=== PATIENT | male | born 2005 | race Caucasian/White ===

== ENCOUNTER 2023-07-23 19:15 | Emergency (ER) | payer OTHER, SELFPAY ==
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
[2023-07-23 19:34] VITALS: BP 126/66; PULSE 78; RESP 20; TEMP 36.8; O2SAT 98; BMI 22.8
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
--- OUTSIDE RECORDS SUMMARY | 2023-07-23 20:21 | XMS_ITS | Continuity of Care Document ---
Author Name Unknown Organization [facility] Address [address] [place] [id number]- Care Team Providers Care Data Analytics Developer Name Role Phone Not on Staff, PCP Primary Care Physician Unavail able [place] [facility] [place] Date(s[place] 03/27/22 - 04/29/[address] [address]- Attending Physician: George LANDRUM, Zulma Thomson Admitting Physician: George LANDRUM, Zulma Thomson Referring Physician: George LANDRUM, Zulma Thomson Allergies, Adverse Reactions, Alerts Substance Reaction Severity Status amoxicillin Active Medications Motrin Childrens 100 mg/5 mL oral suspension 25 mL = 500 mg, By Mouth, Every 6 hours, PRN as needed for pain, # 450 mL, 0 Refills, Maintenance, 09/08/17 22:01:45 Start Date: 09/08/17 Status: Ordered Tylenol Extra Strength 500 mg oral tablet 2 tablet = 1,000 mg, By Mouth, 3 times a day, PRN for fever, # 60 tablet, 0 Refills, Maintenance, 03/31/22 10:35:00 EDT, Tablet, [id number], Partial fill upon patient request, 170, cm, 03/31/22 9:24:00 EDT, Height, 63.1, kg, 03/31/22 9:24:00 E... Start Date: 03/31/22 Stop Date: 04/10/22 Status: Ordered Problem List Condition Effective Dates Status Health Status Inform ant Viral illness(Confirmed) Active Care Team Personnel Name: Not on Staff, PCP
--- OUTSIDE RECORDS SUMMARY | 2023-07-23 20:21 | XMS_ITS | Continuity of Care Document ---
Author Name Unknown Organization [facility] Address [address] [place] [id number]- Care Team Providers Care Prepress Operator Name Role Phone Not on Staff, PCP Primary Care Physician Unavail able Encounter [facility] [place] Date(s): 05/25/22 - 05/29/[address] [address]- Encounter Diagnosis Vomiting(Final) - 05/25/22 Phlegmon(Final) - 05/25/22 Discharge Disposition: A-D/C Residential, Long Term, or Halfway Fac Attending Physician: Sailaja Good MD Admitting Physician: Sailaja Good MD Referring Physician: Not on Staff, Referring MD Allergies, Adverse Reactions, Alerts Substance Reaction Severity Status amoxicillin Active Medications Acetaminophen Tablet 975 mg, Tablet, By Mouth, 05/29/22 13:00:00 EDT Start Date: 05/29/22 Stop Date: 05/29/22 Status: Completed ciprofloxacin 500 mg oral tablet 1 tablet = 500 mg, By Mouth, Every 12 hours, for 3 days, # 6 tablet, 0 Refills, Acute 06/01/22 12:09:00 EDT, 05/29/22 12:09:00 EDT, Tablet, Partial fill upon patient request if the prescription is for a schedule II opioid drug., 173, cm, 05/23/22 17:3... Start Date: 05/29/22 Stop Date: 06/01/22 Status: Ordered Colace sodium 100 mg oral capsule 100 mg, 1, capsule, By Mouth, 2 times a day, PRN, # 20 capsule, Refills 0, Tot. Refills 0, Maintenance, for constipation, 05/23/22 13:13:00 EDT, Print Requisition, Partial fill upon patient request if the prescription is for a schedule II opioid drug. Start Date: 05/23/22 Status: Ordered metroNIDAZOLE 500 mg oral tablet 1 tablet = 500 mg, By Mouth, 3 times a day, for 3 days, # 9 tablet, 0 Refills, Acute 06/01/22 12:10:00 EDT, 05/29/22 12:10:00 EDT, Tablet, Partial fill upon patient request if the prescription is fora schedule II opioid drug., 173, cm, 05/23/22 17:39... Start Date: 05/29/22 Stop Date: 06/01/22 Status: Ordered Motrin Childrens 100 mg/5 mL oral suspension 25 mL = 500 mg, By Mouth, Every 6 hours, PRN as needed for pain, # 450 mL, 0 Refills, Maintenance, 09/08/17 22:01:45 Start Date: 09/08/17 Status: Ordered oxyCODONE 5 mg oral tablet 5 mg, 1, tablet, By Mouth, Every 6 hours, PRN, for 2 days, # 8 tablet, Refills 0, Tot. Refills 0, Acute 05/31/22 12:09:00 EDT, Pain , Moderate, 05/29/22 12:09:00 EDT, Print Requisition, Partial fill upon patient request if the prescription is for a sc... Start Date: 05/29/22 Stop Date: 05/31/22 Status: Ordered oxyCODONE 5 mg oral tablet 5 mg, Tablet, By Mouth, Every 6 hours, PRN for Pain , Moderate, Routine, 05/26/22 9:16:00 EDT Start Date: 05/26/22 Stop Date: 06/02/22 Status: Ordered Tylenol Extra Strength 500 mg [...] Health Status Inform ant Viral illness(Confirmed) Active Procedures Procedure Date Related Diagnosis Body Site Status Appendectomy Completed Results Orders for Microbiology Reports Name Date Blood Culture 05/25/22 Blood Culture #2 05/25/22 Microbiology Reports TEST:Blood Culture, Second Order STATUS:Unauthenticated BODY SITE: SOURCE:Blood COLLECTED DATE/TIME:05/25/22 12:47 PM Blood Culture, Second Order SPECIMEN DESCRIPTION : BLOOD LAC SPECIAL REQUESTS : NONE CULTURE : NO GROWTH 4 DAYS REPORT STATUS : PRELIMINARY REPORT TEST:Blood Culture STATUS:Unauthenticated BODY SITE: SOURCE:Blood COLLECTED DATE/TIME:05/25/22 12:35 PM Blood Culture SPECIMEN DESCRIPTION : BLOOD RAC SPECIAL REQUESTS : NONE CULTURE : NO GROWTH 4 DAYS REPORT STATUS : PRELIMINARY REPORT Vital Signs Most recent to oldest [Reference Range]: 1 2 3 Weight 66.3 kg (05/27/22 6:17 AM) Oxygen Saturation [94-100 %] 98 % (05/29/22 7:33 AM) 100 % (05/28/22 11:48 PM) 99 % (05/28/22 4:50 PM) Pulse Rate [55-90 bpm] 78 bpm (05/29/22 7:33 AM) 66 bpm (05/28/22 11:48 PM) 72 bpm (05/28/22 4:50 PM) Blood Pressure [90-138/55-84 mm Hg] 124/61mm Hg (05/29/22 7:33 AM) 128/69mm Hg (05/28/22 11:48 PM) 130/57mm Hg (05/28/22 4:50 PM) Respiratory Rate [16-30 br/min] 18 br/min (05/29/22 4:29 PM) 18 br/min (05/29/22 4:29 PM) 18 br/min (05/29/22 2:29 PM) Temperature [96.8-100.4 DegF] 98.2 DegF (05/29/22 7:33 AM) 97.7 DegF (05/28/22 11:48 PM) 98.2 DegF (05/28/22 4:50 PM) Mode of Delivery (Oxygen) Room air (05/29/22 7:33 AM) Room air (05/28/22 11:48 PM) Room air (05/28/22 4:50 PM) Blood pressure sites Arm, left (05/29/22 7:33 AM) Arm, left (05/28/22 11:48 PM) Arm, left (05/28/22 4:50 PM) Temperature Route Oral (05/29/22 7:33 AM) Oral (05/28/22 11:48 PM) Oral (05/28/22 4:50 PM) Dry Weight 66.3 kg (05/27/22 6:17 AM) Care Team Personnel Name: Not on Staff, PCP
--- OUTSIDE RECORDS SUMMARY | 2023-07-23 20:21 | XMS_ITS | Continuity of Care Document ---
Author Name Unknown Organization [facility] As [facility] Address [address] [place] [address] [address] [place] [address]- Care Team Providers Care Chemical Instrumentation Officer Name Role Phone Not on Staff, PCP Primary Care Physician Unavail able Encounter [facility] [place] Date(s): 06/05/22 - 06/12/[address] [place] [address]- Attending Physician: Merlin Sweeney MD Allergies, Adverse Reactions, Alerts Substance Reaction Severity Status amoxicillin Active Medications Colace sodium 100 mg oral capsule 100 mg, 1, capsule, By Mouth, 2 times a day, PRN, # 20 capsule, Refills 0, Tot. Refills 0, Maintenance, for constipation, 05/23/22 13:13:00 EDT, Print Requisition, Partial fill upon patient request if the prescription is for a schedule II opioid drug. Start Date: 05/23/22 Status: Ordered Motrin Childrens 100 mg/5 mL [...] Date: 04/10/22 Status: Ordered Problem List Condition Confirmation Course Effective Dates Status Health St atus Informant Viral illness Confirmed Active Vital Signs Most recent to oldest [Reference Range]: 1 Height 173 cm (06/05/22 11:29 AM) Weight 63.8 kg (06/05/22 11:29 AM) Pulse Rate [55-90 bpm] 74 bpm (06/05/22 11:29 AM) Body Mass Index [18.5-24.99 kg/m2] 21.32 kg/m2 (06/05/22 11:29 AM) Blood Pressure [90-138/55-84 mm Hg] 142/ 77mm Hg *H* (06/05/22 11:29 AM) Temperature [96.8-100.4 DegF] 98.5 DegF (06/05/22 11:29 AM) Blood pressure sites Arm, left (06/05/22 11:29 AM) Temperature Route Temporal (06/05/22 11:29 AM) Weight Obtained Via Standing scale (06/05/22 11:29 AM) Patient Care team information Personnel Name: Not on Staff, PCP
--- OUTSIDE RECORDS SUMMARY | 2023-07-23 20:21 | XMS_ITS | Continuity of Care Document ---
Author Name Unknown Organization [facility] Address [address] [place] [address]- Care Team Providers Care Remediation Consultant Name Role Phone Not on Staff, PCP Primary Care Physician Unavail able Encounter [facility] [place] Date(s): 05/10/20 - 05/10/[address] [address]- [facility] Encounter Diagnosis URI due to influenza(Final) - 05/10/20 URI (upper respiratory infection)(Final) - 05/10/20 Discharge Disposition: A-D/C Home Attending Physician: Marin Ji MD Admitting Physician: Marin Ji MD Referring Physician: Not on Staff, Referring MD Allergies, Adverse Reactions, Alerts Substance Reaction Severity Status amoxicillin Active Medications cefuroxime 250 mg/5 ml oral powder for reconstitution 10 mL = 500 mg, By Mouth, 2 times a day, # 160 mL, 0 Refills Start Date: 01/26/09 Stop Date: 02/03/09 Status: Ordered Motrin Childrens 100 mg/5 mL oral suspension 25 mL = 500 mg, By Mouth, Every 6 hours, PRN as needed for pain, # 450 mL, 0 Refills, Maintenance, 09/08/17 22:01:45 Start Date: 09/08/17 Status: Ordered Problem List Condition Effective Dates Status Health Status Inform ant Viral illness(Confirmed) Active Vital Signs Most recent to oldest [Reference Range]: 1 2 Height 169 cm (05/10/20 11:05 PM) 169 cm (05/10/20 9:19 PM) Weight 63.9 kg (05/10/20 11:05 PM) 63.9 kg (05/10/20 9:19 PM) Oxygen Saturation [94-100 %] 99 % (05/10/20 11:05 PM) 100 % (05/10/20 9:19 PM) Pulse Rate [55-90 bpm] 57 bpm (05/10/20 11:05 PM) 72 bpm (05/10/20 9:19 PM) Body Mass Index [18.5-24.99] 22.37 (05/10/20 11:05 PM) 22.37 (05/10/20 9:19 PM) Blood Pressure [80-130/50-80 mm Hg] 118/ 63mm Hg (05/10/20 11:05 PM) 122/58mm Hg (05/10/20 9:19 PM) Respiratory Rate [16-30 br/min] 18 br/mi n (05/10/20 11:05 PM) 18 br/min (05/10/20 9:19 PM) Temperature [96.8-100.4 DegF] 97.8 DegF (05/10/20 11:05 PM) 98.1 DegF (05/10/20 9:19 PM) Mode of Delivery (Oxygen) Room air (05/10/20 11:05 PM) Room air (05/10/20 9:19 PM) Blood pressure sites Arm, left (05/10/20 11:05 PM) Arm, left (05/10/20 9:19 PM) Temperature Route Oral (05/10/20 11:05 PM) Oral (05/10/20 9:19 PM) Dry Weight 63.9 kg (05/10/20 11:05 PM) 63.9 kg (05/10/20 9:19 PM) Weight Obtained Via Standing scale (05/10/20 9:19 PM) Dry Weight Obtained Via Standing scale (05/10/20 9:19 PM)
--- OUTSIDE RECORDS SUMMARY | 2023-07-23 20:21 | XMS_ITS | Continuity of Care Document ---
Author Name Unknown Organization [facility] Address [address] [place] [address]- Care Team Providers Care Toggle Press Folder And Feeder Name Role Phone Not on Staff, PCP Primary Care Physician Unavail able [place] [facility] [place] [facility] [place] Date(s): 03/31/22 - 03/31/[address] [address]- Encounter Diagnosis Rt groin pain(Final) - 03/31/22 Chlamydial infection(Final) - 03/31/22 Discharge Disposition: A-D/C Home Attending Physician: Ezra Rudolph MD Admitting Physician: Ezra Rudolph MD Referring Physician: Not on Staff, Referring MD Allergies, Adverse Reactions, Alerts Substance Reaction Severity Status amoxicillin Active Medications doxycycline hyclate 100 mg oral tablet 1 capsule, By Mouth, Every 12 hours, for 21 days, # 42 capsule, 0 Refills, Acute 04/19/22 22:31:00 EDT, 03/29/22 22:31:00 EDT, Capsule, [id number], Partial fill upon patient request if the prescription is for a schedule II opioid drug., 169, c... Start Date: 03/29/22 Stop Date: 04/19/22 Status: Ordered ibuprofen 400 mg oral tablet 400 mg, 1, tablet, By Mouth, Every 8 hours, for 10 days, # 30 tablet, Refills 0, Tot. Refills 0, Acute 04/10/22 10:34:00 EDT, 03/31/22 10:34:00 EDT, Route to Pharmacy Electronically, [id number], Partial fill upon patient request if the prescri... Start Date: 03/31/22 Stop Date: 04/10/22 Status: Ordered Lidoderm 5% film 1 patch, Topically, Daily, for 3 days, remove patches after 12 hours, # 3 patch, 0 Refills, Acute 04/03/22 11:01:00 EDT, 03/31/22 11:01:00 EDT, [id number], Partial fill upon patient request if the prescription is for a schedule II opioid drug.... Start Date: 03/31/22 Stop Date: 04/03/22 Status: Ordered Motrin Childrens 100 mg/5 mL [...] 0 Refills, Maintenance, 03/31/22 10:35:00 EDT, Tablet, [id number], Partial fill upon patient request, 170, cm, 03/31/22 9:24:00 EDT, Height, 63.1, kg, 03/31/22 9:24:00 E... Start Date: 03/31/22 Stop Date: 04/10/22 Status: Ordered Problem List Condition Effective Dates Status Health Status Inform ant Viral illness(Confirmed) Active Vital Signs Most recent to oldest [Reference Range]: 1 2 3 Height 170 cm (03/31/22 10:49 AM) 170 cm (03/31/22 9:24 AM) 170 cm (03/31/22 7:30 AM) Weight 63.1 kg (03/31/22 10:49 AM) 63.1 kg (03/31/22 9:24 AM) 63.1 kg (03/31/22 7:30 AM) Oxygen Saturation [94-100 %] 99 % (03/31/22 10:49 AM) 100 % (03/31/22 9:24 AM) 99 % (03/31/22 7:23 AM) Pulse Rate [55-90 bpm] 58 bpm (03/31/22 10:49 AM) 60 bpm (03/31/22 9:24 AM) 78 bpm (03/31/22 7:23 AM) Body Mass Index [18.5-24.99] 21.83 (03/31/22 10:49 AM) 21.83 (03/31/22 9:24 AM) 21.83 (03/31/22 7:23 AM) Blood Pressure [90-138/55-84 mm Hg] 123/71mm Hg (03/31/22 10:49 AM) 133/62mm Hg (03/31/22 9:24 AM) 137/67mm Hg (03/31/22 7:23 AM) Respiratory Rate [16-30 br/min] 18 br/min (03/31/22 10:49 AM) 18 br/min (03/31/22 9:24 AM) 16 br/min (03/31/22 7:23 AM) Temperature [96.8-100.4 DegF] 98.1 DegF (03/31/22 10:49 AM) 98.5 DegF (03/31/22 9:24 AM) 98.1 DegF (03/31/22 7:23 AM) Mode of Delivery (Oxygen) Room air (03/31/22 10:49 AM) Room air (03/31/22 9:24 AM) Nasal cannula (03/31/22 7:23 AM) Blood pressure sites Arm, left (03/31/22 10:49 AM) Arm, left (03/31/22 9:24 AM) Leg, right (03/31/22 7:23 AM) Temperature Route Oral (03/31/22 10:49 AM) Oral (03/31/22 9:24 AM) Oral (03/31/22 7:23 AM) Dry Weight 63.1 kg (03/31/22 10:49 AM) 63.1 kg (03/31/22 9:24 AM) 63.1 kg (03/31/22 7:30 AM)
--- OUTSIDE RECORDS SUMMARY | 2023-07-23 20:21 | XMS_ITS | Continuity of Care Document ---
Author Name Unknown Organization [facility] Address [address] [place] [address] [address] [place] [address]- Care Team Providers Care Strategic Sourcing Consultant Name Role Phone Not on Staff, PCP Primary Care Physician Unavail able [place] [facility] [place] - 07/05/[address] [place] [address]- Attending Physician: Benjamin Taylor Admitting Physician: Benjamin Taylor Referring Physician: AdmtrBenjamin Allergies, Adverse Reactions, Alerts Substance Reaction Severity [...] St atus Informant Viral illness Confirmed Active Patient Care team information Personnel Name: Not on Staff, PCP
--- OUTSIDE RECORDS SUMMARY | 2023-07-23 20:21 | XMS_ITS | Continuity of Care Document ---
Author Name Unknown Organization [facility] Address [address] [place] [address]- Care Team Providers Care Membership Assistant Name Role Phone Not on Staff, PCP Primary Care Physician Unavail able [place] [facility] [place] - 03/30/[address] [address] Discharge Disposition: A-D/C Home Attending Physician: Mg Godwin MD Admitting Physician: Mg Godwin MD Referring Physician: Not on Staff, Referring [...] Date: 03/29/22 Stop Date: 04/19/22 Status: Ordered Motrin Childrens 100 mg/5 mL oral suspension 25 mL = 500 mg, By Mouth, Every 6 hours, PRN as needed for pain, # 450 mL, 0 Refills, Maintenance, 09/08/17 22:01:45 Start Date: 09/08/17 Status: Ordered Problem List Condition Effective Dates Status Health Status Inform ant Viral illness(Confirmed) Active Vital Signs Most recent to oldest [Reference Range]: 1 2 3 Height 174 cm (03/30/22 5:04 AM) Weight 61.7 kg (03/30/22 5:04 AM) Oxygen Saturation [94-100 %] 99 % (03/30/22 9:00 AM) 100 % (03/30/22 5:04 AM) 100 % (03/30/22 3:50 AM) Pulse Rate [55-90 bpm] 75 bpm (03/30/22 9:00 AM) 74 bpm (03/30/22 5:04 AM) 80 bpm (03/30/22 3:50 AM) Body Mass Index [18.5-24.99] 20.38 (03/30/22 5:04 AM) Blood Pressure [90-138/55-84 mm Hg] 112/66mm Hg (03/30/22 9:00 AM) 115/59mm Hg (03/30/22 5:04 AM) 132/74mm Hg (03/30/22 3:50 AM) Respiratory Rate [16-30 br/min] 18 br/min (03/30/22 9:00 AM) 24 br/min (03/30/22 5:04 AM) 16 br/min (03/30/22 3:50 AM) Temperature [96.8-100.4 DegF] 98.1 DegF (03/30/22 9:00 AM) 97.3 DegF (03/30/22:04 AM) 98.4 DegF (03/30/22 3:50 AM) Mode of Delivery (Oxygen) Room air (03/30/22 9:00 AM) Room air (03/30/22 5:04 AM) Room air (03/30/22 3:50 AM) Blood pressure sites Arm, left (03/30/22 9:00 AM) Arm, left (03/30/22 5:04 AM) Arm, right (03/29/22 11:33 PM) Temperature Route Oral (03/30/22 9:00 AM) Oral (03/30/22 5:04 AM) Oral (03/30/22 3:50 AM) Dry Weight 61.7 kg (03/30/22 5:04 AM) Weight Obtained Via Standing scale (03/30/22 5:04 AM) Dry Weight Obtained Via Standing scale (03/30/22 5:04 AM)
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
== END 2023-07-23 23:16 | disposition home or self-care (01) ==
PROVIDERS: Emergency Provider Emergency Medicine Emergency Medical Services
DX: S09.90XA Unspecified injury of head, initial encounter (principal); M54.2 Cervicalgia; R51.9 Headache, unspecified; V43.52XA Car driver injured in collision with other type car in traffic accident, initial encounter; Y93.9 Activity, unspecified; Y92.410 Unspecified street and highway as the place of occurrence of the external cause; Y99.9 Unspecified external cause status
CPT/HCPCS: 70450; 72125; 99283; 99284